=== PATIENT | female | born 1990 | race Two or more races ===

== ENCOUNTER 2017-11-04 18:43 | Emergency (ER) | payer OTHER | END 2017-11-04 19:25 | disposition home or self-care (01) | LOC: ER 18:43 | DX: M25.561 Pain in right knee (principal); M25.572 Pain in left ankle and joints of left foot; I10 Essential (primary) hypertension; W01.0XXA Fall on same level from slipping, tripping and stumbling without subsequent striking against object, initial encounter; Y93.89 Activity, other specified; Y99.0 Civilian activity done for income or pay; Y92.69 Other specified industrial and construction area as the place of occurrence of the external cause | CPT/HCPCS: 73562; 73610; 99284 ==